=== PATIENT | female | born 1980 | race Caucasian/White ===

== ENCOUNTER 2021-12-08 15:11 | Emergency (ER) | payer OTHER ==
[~2021-12-08 15:11] MED LIST: IBUPROFEN600 MG PO; Voltaren Gel 1 % TOP
== END 2021-12-08 16:52 | disposition home or self-care (01) ==
LOC: ER1 15:11
DX: J06.9 Acute upper respiratory infection, unspecified (principal); Z20.822 Contact with and (suspected) exposure to COVID-19; Z88.5 Allergy status to narcotic agent; Z87.891 Personal history of nicotine dependence
CPT/HCPCS: 0240U; 99283